=== PATIENT | female | born 1960 | race Two or more races ===

== ENCOUNTER 2017-08-28 13:16 | Inpatient (IN) | payer MEDICAID, OTHER ==
[~2017-08-28] VITALS: Ht 154.9 cm; Wt 59.0 kg
[2017-08-28 14:23] LABS: BASOPHILS % 0.7 % (0.0-2.0); EOSINOPHILS % 2.8 % (0.0-5.0); HEMATOCRIT. 34.5 % (36.0-48.0); HEMOGLOBIN. 11.9 g/dL (12.0-16.0); MEAN CORPUSCULAR HEMOGLOBIN 28.6 pg (28.0-32.0); MEAN CORPUSCULAR VOLUME 82.8 fL (81.0-99.0); MEAN PLATELET VOLUME 10.3 fl (7.4-10.4); MONOCYTES % 7.6 % (2.0-8.0); NEUTROPHILS % 62.9 % (40.0-76.0); PLATELET 181 x1000/uL (130-400); RED BLOOD CELL COUNT 4.17 mill/uL (4.2-5.4); RED CELL DISTRIBUTION WIDTH 13.7 % (11.6-14.6)
[2017-08-28 14:26] LABS: CHLORIDE 94 mEq/L (98-107)
[2017-08-28 14:28] LABS: PROTHROMBIN TIME 10.7 sec (9.4-11.6)
[2017-08-28 14:30] LABS: ETHANOL BLOOD < 10 mg/dL
[2017-08-28 14:33] LABS: LDL CHOLESTEROL 106 mg/dL (5-100)
[2017-08-28] MEDS ORDERED: SODIUM CHLORIDE 0.9% 500 ML IV ONE (15:30)
[2017-08-28] MEDS: SODIUM CHLORIDE 0.9% 1,000 ML IV SCH (17:13)
[2017-08-28] MEDS ORDERED: ACETAMINOPHEN 325MG TABLET PO PRN (17:15)
[2017-08-28] MEDS ORDERED: CLONIDINE 0.1MG TABLET PO PRN (17:15)
[2017-08-28] MEDS ORDERED: MAGNESIUM/ALUMINUM HYDROXIDE/SIMETHICONE 30ML UDC PO PRN (17:15)
[2017-08-28] MEDS ORDERED: ONDANSETRON HCL 4MG/2ML VIAL IV PRN (17:15)
[2017-08-28] MEDS ORDERED: LORAZEPAM 2MG/ML CPJ IV PRN (17:15)
[2017-08-28] MEDS ORDERED: DIPHENHYDRAMINE 50MG/ML VIAL IV PRN (17:15)
[2017-08-28 17:46] LABS: KETONES URINE TRACE (NEGATIVE); LEUKOCYTE ESTERASE URINE TRACE (NEGATIVE); NITRITE URINE NEGATIVE (NEGATIVE); OCCULT BLOOD URINE NEGATIVE (NEGATIVE); PH URINE 6.5 (4.5-8.0); PROTEIN URINE NEGATIVE (NEGATIVE); SPECIFIC GRAVITY URINE 1.017 (1.005-1.030)
[2017-08-28 17:51] LABS: COLOR URINE YELLOW (YELLOW)
[2017-08-28 17:52] LABS: CLARITY URINE CLEAR (CLEAR)
[2017-08-28 18:08] LABS: *AMPHETAMINES SCREEN URINE NEGATIVE (NEGATIVE); *BARBITURATES SCREEN URINE NEGATIVE (NEGATIVE)
[2017-08-28 18:09] LABS: *BENZODIAZEPINES SCREEN URINE NEGATIVE (NEGATIVE); *COCAINE SCREEN URINE NEGATIVE (NEGATIVE); CANNABINOID URINE SCREEN NEGATIVE (NEGATIVE); METHADONE URINE SCREEN NEGATIVE (NEGATIVE); OPIATES URINE SCREEN NEGATIVE (NEGATIVE); PHENCYCLIDINE URINE SCREEN NEGATIVE (NEGATIVE)
[2017-08-28 21:06] LABS: AMMONIA 35 uMol/L (<32)
[2017-08-29] VITALS (7 sets, daily range): BP systolic 101–134; BP diastolic 52–90
[2017-08-29] MEDS: SODIUM CHLORIDE 0.9% 1,000 ML IV SCH (01:49)
[2017-08-29 07:27] LABS: CHLORIDE 91 mEq/L (98-107)
[2017-08-29] MEDS ORDERED: CABE0.5T2 PO (09:23)
[2017-08-29] MEDS ORDERED: BROM2.5T3 PO (09:23)
[2017-08-29] MEDS ORDERED: LEVO100T9 PO (09:23)
[2017-08-29] MEDS ORDERED: SODIUM CHLORIDE 3% 500ML IV SOLN IV ONE (12:45)
[2017-08-29] MEDS ORDERED: SODIUM CHLORIDE 1000MG TABLET PO SCH (13:00)
[2017-08-29] MEDS ORDERED: SODIUM CHLORIDE 3% 250 ML IV NR (14:00)
[2017-08-29 20:40] LABS: CHLORIDE 93 mEq/L (98-107)
[2017-08-30] VITALS: BP 108/52
[2017-08-30 04:00] VITALS: BP 100/58
[2017-08-30] MEDS ORDERED: LEVOTHYROXINE SODIUM 100MCG TABLET PO SCH (07:10)
[2017-08-30 07:32] LABS: BASOPHILS % 0.7 % (0.0-2.0); EOSINOPHILS % 2.7 % (0.0-5.0); HEMATOCRIT. 36.1 % (36.0-48.0); HEMOGLOBIN. 12.8 g/dL (12.0-16.0); LYMPHOCYTES % 24.9 % (20.0-50.0); MEAN CORPUSCULAR HEMOGLOBIN 29.1 pg (28.0-32.0); MEAN CORPUSCULAR VOLUME 81.8 fL (81.0-99.0); MEAN PLATELET VOLUME 10.9 fl (7.4-10.4); MONOCYTES % 6.8 % (2.0-8.0); NEUTROPHILS % 64.9 % (40.0-76.0); PLATELET 182 x1000/uL (130-400); RED BLOOD CELL COUNT 4.41 mill/uL (4.2-5.4); RED CELL DISTRIBUTION WIDTH 13.5 % (11.6-14.6)
[2017-08-30 07:42] VITALS: BP 97/50
[2017-08-30 08:05] LABS: CHLORIDE 93 mEq/L (98-107)
[2017-08-30 08:15] LABS: PHOSPHORUS 3.5 mg/dL (2.5-4.9)
[2017-08-30] MEDS ORDERED: CABERGOLINE 0.5 MG PO SCH (09:00)
[2017-08-30] MEDS ORDERED: SODIUM CHLORIDE 3% 500ML IV SOLN IV ONE (10:45)
[2017-08-30 11:22] LABS: T4 FREE 1.23 ng/dL (0.76-1.46)
[2017-08-30 11:47] VITALS: BP 105/48
[2017-08-30] MEDS ORDERED: SODIUM CHLORIDE 3% 500 ML IV NR (12:00)
[2017-08-30 16:18] VITALS: BP 106/60
[2017-08-30 20:00] VITALS: BP 107/54
[2017-08-30 20:42] LABS: CHLORIDE 96 mEq/L (98-107)
[2017-08-31] VITALS: BP 102/51
[2017-08-31 04:00] VITALS: BP 91/54
[2017-08-31] MEDS: LEVOTHYROXINE SODIUM 100MCG TABLET PO SCH (06:35)
[2017-08-31 08:00] VITALS: BP 111/47
[2017-08-31 09:09] LABS: FOLICLE STIMULATING HORMONE 0.4 mIU/mL (.)
[2017-08-31 10:23] LABS: CHLORIDE 100 mEq/L (98-107)
[2017-08-31 10:52] LABS: PHOSPHORUS 3.3 mg/dL (2.5-4.9)
[2017-08-31 12:09] VITALS: BP 101/59
[2017-08-31 13:07] LABS: PROLACTIN > 4700.0 ng/mL (4.8-23.3)
[2017-08-31 16:00] VITALS: BP 104/55
[2017-08-31 20:00] VITALS: BP 105/57
[2017-09-01] VITALS: BP 97/54
[2017-09-01 04:00] VITALS: BP 108/60
[2017-09-01] MEDS: LEVOTHYROXINE SODIUM 100MCG TABLET PO SCH (06:37)
[2017-09-01 07:46] LABS: BASOPHILS % 0.6 % (0.0-2.0); EOSINOPHILS % 3.8 % (0.0-5.0); HEMATOCRIT. 34.1 % (36.0-48.0); HEMOGLOBIN. 12.1 g/dL (12.0-16.0); LYMPHOCYTES % 25.1 % (20.0-50.0); MEAN CORPUSCULAR HEMOGLOBIN 28.9 pg (28.0-32.0); MEAN CORPUSCULAR VOLUME 81.4 fL (81.0-99.0); MONOCYTES % 7.7 % (2.0-8.0); NEUTROPHILS % 62.8 % (40.0-76.0); PLATELET 184 x1000/uL (130-400); RED BLOOD CELL COUNT 4.19 mill/uL (4.2-5.4); RED CELL DISTRIBUTION WIDTH 13.6 % (11.6-14.6)
[2017-09-01 08:00] VITALS: BP 110/58
[2017-09-01 08:07] LABS: CHLORIDE 94 mEq/L (98-107)
[2017-09-01 08:17] LABS: PHOSPHORUS 3.2 mg/dL (2.5-4.9)
[2017-09-01] MEDS ORDERED: SODIUM CHLORIDE 3% 500ML IV SOLN IV ONE (08:45)
[2017-09-01] MEDS ORDERED: SODIUM CHLORIDE 3% 250 ML IV NR (10:00)
[2017-09-01 12:00] VITALS: BP 99/64
[2017-09-01 16:00] VITALS: BP 101/51
[2017-09-01 20:00] VITALS: BP 100/49
[2017-09-02] VITALS: BP 107/60
[2017-09-02 04:00] VITALS: BP_SYST 100; BP_SYST 112; BP_DIAS 52; BP_DIAS 64
[2017-09-02] MEDS: LEVOTHYROXINE SODIUM 100MCG TABLET PO SCH (06:18)
[2017-09-02 07:25] LABS: BASOPHILS % 0.8 % (0.0-2.0); EOSINOPHILS % 4.2 % (0.0-5.0); HEMATOCRIT. 34.5 % (36.0-48.0); HEMOGLOBIN. 11.9 g/dL (12.0-16.0); LYMPHOCYTES % 28.8 % (20.0-50.0); MEAN CORPUSCULAR HEMOGLOBIN 28.6 pg (28.0-32.0); MEAN CORPUSCULAR VOLUME 82.8 fL (81.0-99.0); MEAN PLATELET VOLUME 10.7 fl (7.4-10.4); MONOCYTES % 7.4 % (2.0-8.0); NEUTROPHILS % 58.8 % (40.0-76.0); PLATELET 203 x1000/uL (130-400); RED BLOOD CELL COUNT 4.17 mill/uL (4.2-5.4); RED CELL DISTRIBUTION WIDTH 13.5 % (11.6-14.6)
[2017-09-02 08:00] VITALS: BP 105/51
[2017-09-02 08:14] LABS: CHLORIDE 98 mEq/L (98-107)
[2017-09-02 09:14] LABS: PHOSPHORUS 3.8 mg/dL (2.5-4.9)
[2017-09-02] MEDS ORDERED: SODIUM CHLORIDE 3% 500ML IV SOLN IV ONE (10:15)
[2017-09-02 12:00] VITALS: BP 99/59
[2017-09-02] MEDS ORDERED: SODIUM CHLORIDE 3% 250 ML IV NR (12:00)
[2017-09-02 16:00] VITALS: BP 99/47
[2017-09-02 20:00] VITALS: BP 124/48
[2017-09-03] VITALS: BP 112/64
[2017-09-03 04:00] VITALS: BP_SYST 115; BP_DIAS 63; BP_DIAS 83
[2017-09-03] MEDS: LEVOTHYROXINE SODIUM 100MCG TABLET PO SCH (06:09)
[2017-09-03 07:38] VITALS: BP 114/68
[2017-09-03 07:46] LABS: CHLORIDE 98 mEq/L (98-107)
[2017-09-03] MEDS ORDERED: SODIUM CHLORIDE 3% 500ML IV SOLN IV ONE (10:30)
[2017-09-03] MEDS ORDERED: SODIUM CHLORIDE 3% 250 ML IV SCH (12:00)
[2017-09-03 12:09] VITALS: BP 109/58
[2017-09-03 16:21] VITALS: BP 106/60
[2017-09-03 20:00] VITALS: BP 114/59
[2017-09-04] VITALS: BP 100/59
[2017-09-04 04:00] VITALS: BP 106/59
[2017-09-04] MEDS: LEVOTHYROXINE SODIUM 100MCG TABLET PO SCH (05:19)
[2017-09-04 06:46] LABS: BASOPHILS % 0.8 % (0.0-2.0); EOSINOPHILS % 5.6 % (0.0-5.0); HEMATOCRIT. 34.8 % (36.0-48.0); HEMOGLOBIN. 12.1 g/dL (12.0-16.0); LYMPHOCYTES % 27.6 % (20.0-50.0); MEAN CORPUSCULAR HEMOGLOBIN 28.6 pg (28.0-32.0); MEAN CORPUSCULAR VOLUME 82.5 fL (81.0-99.0); MEAN PLATELET VOLUME 10.3 fl (7.4-10.4); MONOCYTES % 7.2 % (2.0-8.0); NEUTROPHILS % 58.8 % (40.0-76.0); PLATELET 221 x1000/uL (130-400); RED BLOOD CELL COUNT 4.22 mill/uL (4.2-5.4); RED CELL DISTRIBUTION WIDTH 13.6 % (11.6-14.6)
[2017-09-04 08:00] VITALS: BP 104/58
[2017-09-04 09:15] LABS: CHLORIDE 97 mEq/L (98-107)
[2017-09-04] MEDS ORDERED: SODIUM CHLORIDE 3% 500ML IV SOLN IV ONE (11:00)
[2017-09-04 12:00] VITALS: BP 103/55
[2017-09-04] MEDS ORDERED: SODIUM CHLORIDE 3% 500 ML IV ONE (12:00)
[2017-09-04 16:00] VITALS: BP_SYST 100; BP_SYST 129; BP_SYST 150; BP_DIAS 50; BP_DIAS 75; BP_DIAS 97
[2017-09-04 20:00] VITALS: BP_SYST 100; BP_SYST 123; BP_SYST 99; BP_DIAS 52; BP_DIAS 62; BP_DIAS 75
[2017-09-04] MEDS: SODIUM CHLORIDE 0.9% 1,000 ML IV SCH (21:30)
[2017-09-05] VITALS: BP 105/51
[2017-09-05 04:00] VITALS: BP 95/60
[2017-09-05] MEDS: LEVOTHYROXINE SODIUM 100MCG TABLET PO SCH (06:40)
[2017-09-05 07:42] LABS: CHLORIDE 102 mEq/L (98-107)
[2017-09-05 08:00] VITALS: BP 101/56
[2017-09-05] MEDS: SODIUM CHLORIDE 0.9% 1,000 ML IV SCH (08:50)
[2017-09-05 12:00] VITALS: BP_SYST 60; BP_SYST 65; BP_SYST 99; BP_DIAS 39; BP_DIAS 42; BP_DIAS 55
[2017-09-05 13:35] VITALS: BP 103/57
== END 2017-09-05 15:25 | DRG 643 ==
LOC: ER 15:57 → 8WST 16:58 → EDBEDREQ 17:00 → EDBEDREQTM 17:00 → EDBEDREQSVC 17:00 → ENRESERV 19:47 → EDBEDREQ 08-29 00:24 → 8WST 08-29 01:18
PROVIDERS: ADMIT Internal Medicine; ATTEND Internal Medicine
PROC: 4A00X4Z Measurement of Central Nervous Electrical Activity, External Approach (ICD-10-PCS; principal; 2017-08-30)
DX: D35.2 Benign neoplasm of pituitary gland (principal); G93.41 Metabolic encephalopathy; E87.1 Hypo-osmolality and hyponatremia; E03.9 Hypothyroidism, unspecified; H02.402 Unspecified ptosis of left eyelid; D49.7 Neoplasm of unspecified behavior of endocrine glands and other parts of nervous system; G93.89 Other specified disorders of brain; Z90.710 Acquired absence of both cervix and uterus; Z79.899 Other long term (current) drug therapy
CPT/HCPCS: 36415; 70450; 71045; 80048; 80053; 80305; 81003; 82140; 82533; 83001; 83721; 83735; 84100; 84146; 84439; 84443; 84481; 84484; 84550; 85025; 85610; 87086; 93005; 93970; 96360; 96361; 97116; 97163; 97167; 97530; 99285; A6261; C1893; G0482; J2060; J3490; J7030; J7040; J7050